=== PATIENT | male | born 1985 | race Caucasian/White ===

== ENCOUNTER → 2020-01-08 | Outpatient (CLI) | payer OTHER ==
--- NOTE | 2020-01-08 19:42 | MR ---
EXAMINATION TYPE: MR lumbar spine wo con DATE OF EXAM: 01/08/2020 COMPARISON: None HISTORY: Low back pain TECHNIQUE: Multiplanar, multisequence images of the lumbar spine were acquired. L1-L2: Normal disc appearance without desiccation. No herniation, protrusion or disc bulging. No ca nal stenosis is present. Foramina are patent bilaterally. L2-L3: Normal disc appearance without desiccation. No herniation, protrusion or disc bulging. No ca nal stenosis is present. Foramina are patent bilaterally. L3-L4: Mild posterior broad-based disc bulge causes slight anterior mass effect on the thecal sac. No significant spinal stenosis or foraminal encroachment. L4-L5: There is some loss of disc height signal consistent with disc desiccation and degenerative dis c disease. Minimal posterior disc bulge is present, there is circumferential extension of endplate di sc complex without significant foraminal encroachment. L5-S1: Normal disc appearance without desiccation. No herniation, protrusion or disc bulging. No ca nal stenosis is present. Foramina are patent bilaterally. There is some facet arthropathy changes. Lumbar segments are intact. No paraspinal masses are identified. Conus medullaris has a normal appe arance. There is mild multilevel spondylosis, endplate discogenic marrow signal change. Schmorl's nod e present at the superior endplate of L4, inferior endplate of L1. IMPRESSION: Mild degenerative disc changes, no evident spinal stenosis.
== END | disposition home or self-care (01) ==
LOC: RADMRIMAIN 08:48
PROVIDERS: ATTEND Internal Medicine
DX: M51.36 Other intervertebral disc degeneration, lumbar region (principal)
CPT/HCPCS: 72148

== ENCOUNTER → 2022-03-18 | Outpatient (CLI) | payer OTHER ==
--- NOTE | 2022-03-18 10:26 | US ---
EXAMINATION TYPE: US abdomen complete DATE OF EXAM: 03/18/2022 COMPARISON: NONE CLINICAL HISTORY: R10.84 GENERALIZED ABDOMINAL PAIN. abd pain for 4 weeks TECHNIQUE: Multiple sonographic images of the abdomen are obtained. FINDINGS: EXAM MEASUREMENTS: Liver Length: 17.9 cm Gallbladder Wall: 0.2 cm CBD: 0.4 cm Spleen: 11.9 cm Right Kidney: 12.2 x 5.1 x 4.9 cm Left Kidney: 11.3 x 3.4 x 5.8 cm Pancreas: not seen due to bowel gas Liver: wnl Gallbladder: wnl Evidence for sonographic Gaines's sign: no CBD: wnl Spleen: wnl Right Kidney: wnl Left Kidney: wnl Upper IVC: wnl Abd Aorta: wnl The liver is homogenous. The intrahepatic portion of the IVC and proximal abdominal aorta are within normal limits. There is no evidence of cholelithiasis. Common bile duct is unremarkable. The visu alized portions of the pancreas are homogenous. The spleen is unremarkable. Kidneys are symmetric a nd free of hydronephrosis. No renal lesions are seen. IMPRESSION: Unremarkable abdominal ultrasound.
== END | disposition home or self-care (01) ==
LOC: RADUSWWP 09:40
PROVIDERS: ATTEND Internal Medicine
DX: R10.84 Generalized abdominal pain (principal)
CPT/HCPCS: 76700